=== PATIENT | male | born 1995 | race Hispanic/Latino ===

== ENCOUNTER 2016-12-13 17:14 | Emergency (ER) | payer SELFPAY ==
[~2016-12-13] VITALS: Ht 167.6 cm; Wt 70.0 kg
[2016-12-13] MEDS ORDERED: MOTRIN800 MG PO (17:49)
[2016-12-13] MEDS ORDERED: PENICILLN VK500 MG PO (17:49)
[2016-12-13 17:59] VITALS: BP 147/89
== END 2016-12-13 18:01 | disposition home or self-care (01) | DRG 153 ==
LOC: ED 17:14
DX: J02.0 Streptococcal pharyngitis (principal); R50.9 Fever, unspecified